=== PATIENT | female | born 1945 | race Caucasian/White ===

== ENCOUNTER 2020-09-25 10:35 | Emergency (ER) | payer MEDICARE, OTHER ==
[2020-09-25 10:53] VITALS: O2SAT 97
--- NOTE | 2020-09-25 10:58 | ERPHSYRPT ---
- History of Present Illness Time Seen by Provider: 09/25/20 10:57 Source: patient Exam Limitations: no limitations Patient Subjective Stated Complaint: Patient complans of L leg pain x2 weeks. L knee was drained two weeks ago with a cortisone shot in both knees. and she s tates it was very painful and has never been painful before. Knees were drained last 3 years ago with cortisone shot. Triage Nursing Assessment: Patient presents to the ER with L leg pain. Patient is ambulatory. Pulses normal. Large bruise on outter thigh- purple, Bruising on L knee- yellow green and patient states new bruising on [place]. Skin WNL. Physician History: This is an patient states that she can deal with the pain issues she is mostly concerned to know whether or not she has a left lower extremity deep venous thrombosis. Obese 75-year-old white female who presents with 2 weeks of left lower extremity pain swelling and bruising following an injection of cortisone. She routinely receives injections in her knees for relief of her arthritic pain. This last injection occurred approximately 2 weeks ago. Patient noticed that she had bruising which she does not typically have in her left lower extremity. She had more bruising this morning and noticed that her left lower extremity is more swollen than the right lower extremity and more swollen than usual. She denies shortness of breath. She denies chest pain. Method of Injury: other (Status post cortisone injection left knee) Occurred: other (2 weeks ago) Quality: aching (Mild) Severity of Pain-Max: mild Severity of Pain-Current: mild Lower Extremities Pain: knee: left, thigh: left, ankle: left Modifying Factors: Improves With: movement Associated Symptoms: none Allergies/Adverse Reactions: Penicillins Allergy (Mild, Verified 09/25/20 11:40) Home Medications: Amlodipine Besylate 5 mg [Norvasc 5 mg] 5 mg PO 09/25/20 [History] Levothyroxine Sodium [Levothyroxine] 50 mg PO 09/25/20 [History] Metformin HCl 500 mg [Glucophage 500 MG] 500 mg PO 09/25/20 [History] Metoprolol Succinate 25 mg Xl* [Toprol-Xl 25MG Tablets] 25 mg PO BID 09/25/20 [History] Simvastatin 40 mg PO 09/25/20 [History] Hx Tetanus, Diphtheria Vaccination/Date Given: Yes Hx Influenza Vaccination/Date Given: Yes Hx Pneumococcal Vaccination/Date Given: Yes Immunizations Up to Date: Yes Travel Risk - International Travel Have you traveled outside of the country in past 3 weeks: No - Coronavirus Screening Are you exhibiting any of the following symptoms?: No - Vaccine Status Have you recieved a Covid-19 vaccination: Yes Men'S Garment [employer]: [employer] - Vaccination Dates Date of 2cond Vaccination (if applicable): 07-20-20 - Review of Systems Constitutional: No Symptoms Eyes: No Symptoms Ears, Nose, & Throat: No Symptoms Respiratory: No Symptoms Cardiac: No Symptoms Abdominal/Gastrointestinal: No Symptoms Genitourinary Symptoms: No Symptoms Musculoskeletal: Other (Left lower extremity bruising and swelling) Skin: No Symptoms Neurological: No Symptoms Psychological: No Symptoms Endocrine: No Symptoms Hematologic/Lymphatic: No Symptoms Immunological/Allergic: No Symptoms All Other Systems: Reviewed and Negative - Past Medical History Pertinent Past Medical History: Yes Neurological History: No Pertinent History ENT History: Cataracts Cardiac History: No Pertinent History Respiratory History: No Pertinent History Endocrine Medical History: No Pertinent History Musculoskeletal History: Arthritis GI Medical History: No Pertinent History History: No Pertinent History Psycho-Social History: No Pertinent History Female Reproductive Disorders: No Pertinent History - Past Surgical History Past Surgical History: Yes Neuro Surgical History: No Pertinent History Cardiac: No Pertinent History Respiratory: No Pertinent History Gastrointestinal: No Pertinent History Genitourinary: No Pertinent History Musculoskeletal: No Pertinent History Female Surgical History: No Pertinent History Other Surgical History: R foot, neck, hysterectomy - Social History Smoking Status: Former smoker Exposure to second hand smoke: No Drug Use: none Patient Lives Alone: Yes - Female History Hx Now: No - Nursing Vital Signs Nursing Vital Signs: Initial Vital Signs Temperature 97 F 09/25/20 10:40 Pulse Rate 85 09/25/20 10:40 Blood Pressure 141/54 09/25/20 10:40 O2 Sat by Pulse Oximetry 97 09/25/20 10:40 Pain Scale Pain Intensity 0 - Physical Exam General Appearance: no apparent distress, alert, anxiety, obese Eyes, Ears, Nose, Throat Exam: normal ENT inspection, moist mucous membranes Neck Exam: normal inspection, non-tender, supple, full range of motion Cardiovascular/Respiratory Exam: chest non-tender, no respiratory distress Gastrointestinal/Abdominal Exam: non-tender Back Exam: normal inspection, normal range of motion, No CVA tenderness, No vertebral tenderness Hips Exam: bilateral: non-tender, normal inspection, normal range of motion, no evidence of injury Legs Exam: right leg: non-tender, normal inspection, left leg: ecchymosis, soft tissue tenderness, swelling, bilateral leg: normal range of motion, no evidence of injury Knees Exam: bilateral knee: non-tender, normal inspection, normal range of motion, no evidence of injury Ankle Exam: right ankle: normal inspection, left ankle: ecchymosis, soft tissue tenderness, swelling, bilateral ankle: non-tender, normal range of motion, no evidence of injury Foot Exam: bilateral foot: non-tender, normal inspection, normal range of motion, no evidence of injury Neuro/Tendon Exam: normal sensation, normal motor functions, normal tendon functions Mental Status Exam: alert, oriented x 3, cooperative Skin Exam: ecchymosis (Left lower extremity) SpO2 Interpretation: normal SpO2: 97 O2 Delivery: Room Air - Course Nursing assessment & vital signs reviewed: Yes Ordered Tests: Active Orders 24 hr Category Date Time Status VENOUS UNILAT/LIMITED EXTREMIT [US] Stat Exams 09/25/20 11:17 Ordered - Progress Progress: unchanged Progress Note: 09/25/20 11:51 Venous ultrasound the left lower extremity shows no evidence of any deep venous thrombosis. Counseled pt/family regarding: diagnosis, need for follow-up, rad results - Departure Departure Disposition: Home Clinical Impression: Left leg swelling, Superficial bruising of lower leg Condition: Stable Critical Care Time: No Referrals: ALBERTINA RODRÍGUEZ [Primary Care Provider] - Additional Instructions: Keep left lower extremity elevated above the level of your heart when not ambulating. Ice pack to bruised areas 2-3 times a day for the next 48 hours. Follow-up with your primary care physician for further management.
[2020-09-25 12:01] VITALS: BP 128/66; PULSE 64
--- NOTE | 2020-09-25 12:02 | XRAY ---
Indication: Pain and swelling. Two-dimensional sonogram and color Doppler imaging of the major venous vessels of the left leg was performed. Comparison: None No thrombus seen in the examined deep venous vessels of the left leg including greater saphenous vein. Veins demonstrate normal compressibility. Venous waveforms are normal with and without augmentation. Impression: Left leg negative for DVT.
== END 2020-09-25 12:01 | disposition home or self-care (01) ==
LOC: ED 10:35
DX: M79.89 Other specified soft tissue disorders (principal); S80.12XA Contusion of left lower leg, initial encounter; M79.662 Pain in left lower leg
CPT/HCPCS: 93971; 99283

== ENCOUNTER 2020-10-06 07:31 | Day surgery (SDC) | payer MEDICARE, OTHER ==
[~2020-10-06 07:31] MED LIST: Ak-Dilate OPHTHALMIC*** 1.065 ML, Cyclogyl 1% OPHTH SOL 5 ML 1.065 ML, GATIFLOXACIN 0.5... OP ONE; BETADINE 5% OPHTHALMIC 30 ML OP ONE; Lactated Ringers 1,000 ML IV SCH; NON-FORMULARY ITEM OP ONE; TETRACAINE 0.5% STERI-UNIT SOL OP ONE; cefUROXime sodium 0.005 GM in Sodium Chloride Flush 30 ML*** 0.5 ML IJ SCH
[2020-10-06] MEDS ORDERED: Lactated Ringers 1,000 ML IV ONE (07:58)
[2020-10-06] MEDS ORDERED: Zofran 4 MG/2 ML VIAL IV PRN (09:00)
[2020-10-06] MEDS ORDERED: ACETAZOLAMIDE 250 MG TABLET PO ONE (09:00)
[2020-10-06] MEDS ORDERED: DIPRIVAN 200 MG/20 ML IV ONE (09:24)
[2020-10-06] MEDS ORDERED: LIDOCAINE HCL 1% 50 MG/5 ML VL PF IJ ONE (10:00)
[2020-10-06] MEDS ORDERED: Epinephrine Preservative Free 1 MG/ML INTRAOP ONE (10:00)
[2020-10-06 10:27] VITALS: O2SAT 99
[2020-10-06 10:56] VITALS: BP 132/80; PULSE 57
== END 2020-10-06 11:05 | disposition home or self-care (01) ==
LOC: SDC 07:31
PROVIDERS: ATTEND Ophthalmology
DX: H25.812 Combined forms of age-related cataract, left eye (principal); E11.9 Type 2 diabetes mellitus without complications; I10 Essential (primary) hypertension; E07.9 Disorder of thyroid, unspecified; E78.00 Pure hypercholesterolemia, unspecified; Z79.899 Other long term (current) drug therapy
CPT/HCPCS: 82947; 99100; C1780; J0171; J2001; J2704; A9270-GY

== ENCOUNTER 2020-11-03 06:55 | Day surgery (SDC) | payer MEDICARE, OTHER ==
[2020-11-03] MEDS ORDERED: Lactated Ringers 1,000 ML IV SCH (07:00)
[2020-11-03] MEDS ORDERED: BETADINE 5% OPHTHALMIC 30 ML OP ONE (07:00)
[2020-11-03] MEDS ORDERED: TETRACAINE 0.5% STERI-UNIT SOL OP ONE ×2 (07:00)
[2020-11-03] MEDS ORDERED: NON-FORMULARY ITEM OP ONE (07:00)
[2020-11-03] MEDS ORDERED: Ak-Dilate OPHTHALMIC*** 1.065 ML, Cyclogyl 1% OPHTH SOL 5 ML 1.065 ML, GATIFLOXACIN 0.5... OP ONE ×4 (07:00)
[2020-11-03] MEDS ORDERED: cefUROXime sodium 0.005 GM in Sodium Chloride Flush 30 ML*** 0.5 ML IJ SCH (07:00)
[2020-11-03] MEDS ORDERED: Lactated Ringers 1,000 ML IV ONE (07:08)
[2020-11-03] MEDS ORDERED: Epinephrine Preservative Free 1 MG/ML INTRAOP ONE (09:00)
[2020-11-03] MEDS ORDERED: Zofran 4 MG/2 ML VIAL IV PRN (09:00)
[2020-11-03] MEDS ORDERED: ACETAZOLAMIDE 250 MG TABLET PO ONE (09:00)
[2020-11-03] MEDS ORDERED: LIDOCAINE HCL 1% 50 MG/5 ML VL PF IJ ONE (09:00)
[2020-11-03] MEDS ORDERED: DIPRIVAN 200 MG/20 ML IV ONE ×2 (09:29→10:12)
[2020-11-03 10:50] VITALS: O2SAT 98
[2020-11-03 11:15] VITALS: BP 148/80; PULSE 71
== END 2020-11-03 11:21 | disposition home or self-care (01) ==
LOC: SDC 06:55
PROVIDERS: ATTEND Ophthalmology
DX: H25.811 Combined forms of age-related cataract, right eye (principal); E11.9 Type 2 diabetes mellitus without complications; I10 Essential (primary) hypertension; E07.9 Disorder of thyroid, unspecified; Z79.899 Other long term (current) drug therapy
CPT/HCPCS: 82947; 99100; C1780; J0171; J2001; J2704; A9270-GY

== ENCOUNTER 2024-01-22 09:23 | Emergency (ER) | payer MEDICARE, OTHER ==
[2024-01-22 09:38] VITALS: TEMP 97.6
[2024-01-22 10:07] LABS: Absolute Neutrophil Ct (ANC) 5.18 x10^3/uL (1.56-6.13); BASOPHIL % 1.2 % (0.1-1.2); Eosinophil % 4.3 % (0.7-5.8); Eosinophil (Absolute #) 0.35 x10^3/uL (0.04-0.36); Hemoglobin 12.7 g/dL (11.2-15.7); IMMATURE GRAN # 0.03 x10^3u/L (0.001-0.031); IMMATURE GRAN % 0.4 % (0.001-0.429); Lymphocyte (Absolute #) 2.06 x10^3/uL (1.18-3.74); Lymphocytes % 25.2 % (19.3-51.7); Mean Cell Volume 93.4 fL (79.4-94.8); Mean Corpuscular Hemoglobin 31.2 pg (25.6-32.2); Mean Corpuscular Hgb Concent. 33.4 g/dL (32.2-35.5); Mean Platelet Volume 9.8 fL (9.4-12.3); Monocyte (Absolute #) 0.47 x10^3/uL (0.24-0.86); Monocytes % 5.7 % (4.7-12.5); Neutrophil % 63.2 % (34.0-71.1); Platelet Count 254 x10^3/uL (182-369); Red Blood Count 4.07 x10^6/uL (3.93-5.22); Red Cell Distribution Width 12.7 % (11.7-14.4); White Blood Count 8.2 x10^3/uL (3.98-10.04)
[2024-01-22 10:28] LABS: BILIRUBIN,TOTAL 0.5 mg/dL (0.2-1.3); Calcium 9.3 mg/dL (8.4-10.2); Creatinine 1 0.66 mg/dL (0.52-1.04); EST GLOMERULAR FILTRATION RATE 90.3 ML/MIN; Potassium 4.1 mmol/L (3.5-5.1); Total Protein 6.3 g/dL (6.3-8.2)
--- NOTE | 2024-01-22 10:35 | ERPHSYRPT ---
- History of Present Illness Time Seen by Provider: 01/22/24 09:32 Historian: patient Exam Limitations: no limitations Patient Subjective Stated Complaint: pt c/o of off and on pain under the right breast and it does radiate to her back Triage Nursing Assessment: Pt was brought to the ER by her daughter, hypertensive, rates pain as 5/10, denies N&V, last BM yesterday, pain under the right breast that radiates to her back, pain sometimes will go to her medial chest, pulses normal, skin n/w/d, no difficulty breathing Physician History: 78-year-old female with history of hypertension, hyperlipidemia, diabetes mellitus presented in the ER with complaint of right lower chest pain for the last 3 weeks. Patient reports most of the time pain is continuous, dull aching with some radiation to the back and sometimes in the substernal area. Denies any aggravating or relieving factors. Denies any right upper quadrant pain. No association with food intake. Denies associated nausea or vomiting. No difficulty breathing or palpitations. Denies any history of coronary artery disease although patient is scheduled for stress test soon. No cough fever or chills reported. Aspirin Treatment Today: no aspirin today Allergies/Adverse Reactions: Penicillins Allergy (Mild, Verified 01/22/24 09:38) Rash Home Medications: Amlodipine Besylate 5 mg [Norvasc 5 mg] 5 mg PO DAILY 09/25/20 [History] Levothyroxine Sodium 50 mcg PO DAILY 09/25/20 [History] Metformin HCl 500 mg [Glucophage 500 MG] 500 mg PO DAILY 09/25/20 [History ] Metoprolol Succinate 25 mg Xl* [Toprol-Xl 25MG Tablets] 25 mg PO BID 09/25/20 [History] Simvastatin 40 mg PO DAILY 09/25/20 [History] Vit C/E/Zn/Coppr/Lutein/Zeaxan [Preservision Areds 2 Softgel] 1 each PO BID 10/23/20 [History] Furosemide 20 mg [Lasix 20 mg] 20 mg PO DAILY 01/22/24 [History] Ibuprofen [Ibu] 800 mg PO UD 01/22/24 [History] Hx Tetanus, Diphtheria Vaccination/Date Given: Yes Hx Influenza Vaccination/Date Given: Yes Hx Pneumococcal Vaccination/Date Given: Yes Travel Risk - International Travel Have you traveled outside of the country in past 3 weeks: No - Emerging Infectious Disease Symptoms: Abdominal Pain - Review of Systems Constitutional: No Symptoms Eyes: No Symptoms Ears, Nose, & Throat: No Symptoms Respiratory: No Symptoms Cardiac: Chest Pain Abdominal/Gastrointestinal: No Symptoms Genitourinary Symptoms: No Symptoms Musculoskeletal: Arthralgias Skin: No Symptoms Neurological: No Symptoms Endocrine: No Symptoms Hematologic/Lymphatic: No Symptoms Immunological/Allergic: No Symptoms - Past Medical History Pertinent Past Medical History: Yes Neurological History: No Pertinent History ENT History: Cataracts Cardiac History: High Cholesterol, Hypertension Respiratory History: No Pertinent History Endocrine Medical History: Diabetes Type I Musculoskeletal History: Arthritis GI Medical History: No Pertinent History History: No Pertinent History Psycho-Social History: No Pertinent History Female Reproductive Disorders: No Pertinent History - Past Surgical History Past Surgical History: Yes Neuro Surgical History: No Pertinent History Cardiac: No Pertinent History Respiratory: No Pertinent History Gastrointestinal: No Pertinent History Genitourinary: No Pertinent History Musculoskeletal: No Pertinent History Female Surgical History: Hysterectomy Other Surgical History: R foot, neck, hysterectomy,cataract left eye - Social History Smoking Status: Former smoker Exposure to second hand smoke: No Drug Use: none Patient Lives Alone: Yes - Social Determinants of Health Will the patient participate in the screening: Yes Do you worry about a steady place to live?: No Do you have any problems with any of the following?: No known problems In the past 12 months,have you had to go without utilities?: No Transportation Issues: No Has anyone in your support network made you feel unsafe?: No Have you or anyone in your house had to go without enough: No - Nursing Vital Signs Nursing Vital Signs: Initial Vital Signs Temperature 97.6 F 01/22/24 09:27 Pulse Rate 85 01/22/24 09:27 Respiratory Rate 22 01/22/24 09:27 Blood Pressure 137/100 01/22/24 09:27 O2 Sat by Pulse Oximetry 96 01/22/24 09:27 Pain Scale Pain Intensity 5 - Physical Exam General Appearance: no apparent distress, alert Eye Exam: PERRL/EOMI Ears, Nose, Throat Exam: normal ENT inspection Neck Exam: normal inspection, non-tender, supple, full range of motion Respiratory Exam: normal breath sounds, chest tenderness (Minimal tenderness right lower to mid anterior chest wall. No flail segments or crepitus.), lungs clear Cardiovascular Exam: regular rate/rhythm, normal heart sounds Gastrointestinal/Abdomen Exam: soft, normal bowel sounds, No tenderness Back Exam: normal inspection Extremity Exam: normal inspection, normal range of motion, pelvis stable Neurologic Exam: alert, oriented x 3, cooperative, anatomy professor II-XII nml as tested Skin Exam: normal color SpO2 Interpretation: normal SpO2: 94 O2 Delivery: Room Air - Course EKG Interpreted by Me: RATE (82), Sinus Rhythm (With PSC), NORMAL AXIS, NORMAL INTERVALS, Other (Mild ST depression ) Ordered Tests: Active Orders 24 hr Category Date Time Status EKG-ER Only STAT Care 01/22/24 09:47 Completed IV Insertion STAT Care 01/22/24 09:47 Completed NPO (ED) STAT Care 01/22/24 09:47 Completed ABDOMEN AND PELVIS W/0 CONTRAS [CT] Stat Exams 01/22/24 11:10 Completed CHEST 1 VIEW (PORTABLE) Stat Exams 01/22/24 09:47 Completed CHEST WITHOUT CONTRAST [CT] Stat Exams 01/22/24 11:10 Completed CBC W DIFF Stat Lab 01/22/24 10:05 Completed CMP Stat Lab 01/22/24 10:05 Completed CULTURE,URINE Stat Lab 01/22/24 11:00 Received D-DIMER QUANTITATIVE Stat Lab 01/22/24 10:05 Completed LIPASE Stat Lab 01/22/24 10:05 Completed NT PRO BNPII Stat Lab 01/22/24 10:05 Completed TROPONIN Q4H Lab 01/22/24 10:05 Completed TROPONIN Q4H Lab 01/22/24 13:04 Completed UA W/RFX UR CULTURE Stat Lab 01/22/24 11:00 Completed Lab/Rad Data: Laboratory Result Diagrams 01/22/24 10:05 01/22/24 10:05 Laboratory Results 01/22/24 01/22/24 01/22/24 Range/Units 13:04 11:00 10:05 WBC (3.98-10.04) x10^3/uL RBC (3.93-5.22) x10^6/uL Hgb (11.2-15.7) g/dL Hct (34.1-44.9) % MCV (79.4-94.8) fL MCH (25.6-32.2) pg MCHC (32.2-35.5) g/dL RDW (11.7-14.4) % Plt Count (182-369) x10^3/uL MPV (9.4-12.3) fL Gran % (34.0-71.1) % Immature Gran % (Auto) (0.001-0.429) % Nucleat RBC Rel Count (0.00-0.2) % Eos # (Auto) (0.04-0.36) x10^3/uL Immature Gran # (Auto) (0.001-0.031) x10^3u/L Absolute Lymphs (auto) (1.18-3.74) x10^3/uL Absolute Monos (auto) (0.24-0.86) x10^3/uL Absolute Nucleated RBC (0.00-0.012) x10^3u/L Lymphocytes % (19.3-51.7) % Monocytes % (4.7-12.5) % Eosinophils % (0.7-5.8) % Basophils % (0.1-1.2) % Absolute Granulocytes (1.56-6.13) x10^3/uL Basophils # (0.01-0.08) x10^3/uL D-Dimer 0.42 (0.0-0.50) mg/L Sodium (135-145) mmol/L Potassium (3.5-5.1) mmol/L Chloride (98-107) mmol/L Carbon Dioxide (22-30) mmol/L Anion Gap (5-15) MEQ/L BUN (7-17) mg/dL Creatinine (0.52-1.04) mg/dL Estimated GFR ML/MIN Glucose (74-106) mg/dL Calcium (8.4-10.2) mg/dL Total Bilirubin (0.2-1.3) mg/dL AST (14-36) U/L ALT (0-35) U/L Alkaline Phosphatase (38-126) U/L Troponin I < 0.012 (0.000-0.033) ng/mL NT-Pro-B Natriuret Pep (<300) pg/mL Serum Total Protein (6.3-8.2) g/dL Albumin (3.5-5.0) g/dL Lipase (23-300) U/L Urine Color Yellow (Yellow) Urine Appearance Clear (Clear) Urine pH 6.0 (4.6-8.0) Ur Specific [place] 1.010 (1.005-1.030) Urine Protein Negative (Negative) Urine Glucose (UA) Negative (Negative) mg/dL Urine Ketones Negative (Negative) Urine Blood Negative (Negative) Urine Nitrite Negative (Negative) Urine Bilirubin Negative (Negative) Urine Urobilinogen 0.2 (0.2) mg/dL Ur Leukocyte Esterase Moderate A (Negative) U Hyaline Cast (Auto) 11-20 (0-2) /LPF Urine Microscopic RBC 0-2 (0-5) /HPF Urine Microscopic WBC 3-5 (0-5) /HPF Ur Epithelial Cells None Seen (None Seen) /HPF Urine Bacteria None Seen (None Seen) /HPF Urine Culture Reflexed YES (NO) 01/22/24 01/22/24 01/22/24 Range/Units 10:05 10:05 10:05 WBC 8.2 (3.98-10.04) x10^3/uL RBC 4.07 (3.93-5.22) x10^6/uL Hgb 12.7 (11.2-15.7) g/dL Hct 38.0 (34.1-44.9) % MCV 93.4 (79.4-94.8) fL MCH 31.2 (25.6-32.2) pg MCHC 33.4 (32.2-35.5) g/dL RDW 12.7 (11.7-14.4) % Plt Count 254 (182-369) x10^3/uL MPV 9.8 (9.4-12.3) fL Gran % 63.2 (34.0-71.1) % Immature Gran % (Auto) 0.4 (0.001-0.429) % Nucleat RBC Rel Count 0.0 (0.00-0.2) % Eos # (Auto) 0.35 (0.04-0.36) x10^3/uL Immature Gran # (Auto) 0.03 (0.001-0.031) x10^3u/L Absolute Lymphs (auto) 2.06 (1.18-3.74) x10^3/uL Absolute Monos (auto) 0.47 (0.24-0.86) x10^3/uL Absolute Nucleated RBC 0.00 (0.00-0.012) x10^3u/L Lymphocytes % 25.2 (19.3-51.7) % Monocytes % 5.7 (4.7-12.5) % Eosinophils % 4.3 (0.7-5.8) % Basophils % 1.2 (0.1-1.2) % Absolute Granulocytes 5.18 (1.56-6.13) x10^3/uL Basophils # 0.10 H (0.01-0.08) x10^3/uL D-Dimer (0.0-0.50) mg/L Sodium 139 (135-145) mmol/L Potassium 4.1 (3.5-5.1) mmol/L Chloride 106 (98-107) mmol/L Carbon Dioxide 23 (22-30) mmol/L Anion Gap 15.0 (5-15) MEQ/L BUN 15 (7-17) mg/dL Creatinine 0.66 (0.52-1.04) mg/dL Estimated GFR 90.3 ML/MIN Glucose 158 H (74-106) mg/dL Calcium 9.3 (8.4-10.2) mg/dL Total Bilirubin 0.50 (0.2-1.3) mg/dL AST 26 (14-36) U/L ALT 29 (0-35) U/L Alkaline Phosphatase 74 (38-126) U/L Troponin I < 0.012 (0.000-0.033) ng/mL NT-Pro-B Natriuret Pep 212 (<300) pg/mL Serum Total Protein 6.3 (6.3-8.2) g/dL Albumin 4.0 (3.5-5.0) g/dL Lipase 129 (23-300) U/L Urine Color (Yellow) Urine Appearance (Clear) Urine pH (4.6-8.0) Ur Specific [place] (1.005-1.030) Urine Protein (Negative) Urine Glucose (UA) (Negative) mg/dL Urine Ketones (Negative) Urine Blood (Negative) Urine Nitrite (Negative) Urine Bilirubin (Negative) Urine Urobilinogen (0.2) mg/dL Ur Leukocyte Esterase (Negative) U Hyaline Cast (Auto) (0-2) /LPF Urine Microscopic RBC (0-5) /HPF Urine Microscopic WBC (0-5) /HPF Ur Epithelial Cells (None Seen) /HPF Urine Bacteria (None Seen) /HPF Urine Culture Reflexed (NO) - Progress Progress: improved Air Movement: good Progress Note: 01/22/24 13:54 78-year-old is evaluated in the ER for right lower chest pain with some radi ation to the back. EKG is sinus rhythm with no ST elevations and negative troponins x 2. She is offered pain medication which she declined multiple times. She has minimal to no right upper quadrant tenderness. Workup showed normal white count, unremarkable chemistries. Has negative D-dimer. Chest x- ray negative for any acute cardiopulmonary findings reviewed by me, official report is pending. I have also obtained CT chest abdomen pelvis which showed hepatomegaly with small hepatic cyst and some lymph node around ryan hepatis and also some mediastinal nodes but no acute inflammatory process. Patient's pain is improved on reevaluation without any intervention. Her pain could be secondary to hepatomegaly causing pressure on the right thorax. Patient is advised to have outpatient follow-up with primary care and have ultrasound for further evaluation. She has appointment with cardiology for stress test soon which she is advised to keep. Discussed signs symptoms of worsening needing return to ER which she seems understanding. Stable for discharge. Blood Culture(s) Obtained: No Antibiotics given: No Counseled pt/family regarding: lab results, diagnosis, need for follow-up, rad results Medical Desision Making - Independent Historian Additional History obtained from: Child - Diagnostic Testing Diagnostic test were ordered, analyzed, and reviewed by me: Yes Radiological Interpretation: Interpreted by me, Reviewed by me, Teleradiologist Report - Departure Departure Disposition: Home Clinical Impression: Right-sided chest pain, Hepatomegaly Condition: Stable Critical Care Time: No Referrals: EMILI EGAN DO [Primary Care Provider] - Follow up with PCP 1 day Instructions: Severe Abdominal Pain, Adult (DC), Angina Additional Instructions: Continue Tylenol as needed. Follow-up with your primary care for reevaluation. Keep appointment with cardiology for stress test. Return to ER for worsening chest pain/abdominal pain or if having difficulty breathing etc.
[2024-01-22 11:15] LABS: Appearance Clear (Clear); Bacteria None Seen /HPF (None Seen); Bilirubin Negative (Negative); Blood Negative (Negative); Epithelial Cells None Seen /HPF (None Seen); Glucose, Urine Negative (Negative); Ketones Negative (Negative); Leukocyte Esterase Moderate (Negative); Nitrite Negative (Negative); Protein,Urine Dip Negative (Negative); RBC 0-2 /HPF (0-5); Urobilinogen 0.2 mg/dL (0.2)
[2024-01-22 11:23] LABS: ADD URINE CULTURE? YES (NO)
[2024-01-22 11:57] VITALS: BP 107/65
[2024-01-22 12:08] VITALS: PULSE 72
--- NOTE | 2024-01-22 12:54 | XRAY ---
CLINICAL HISTORY: right lower chest /RUQ pain COMPARISON: No prior studies available for comparison. TECHNIQUE: Non-contrast CT of the abdomen and pelvis was performed, with the following protocol: axial images, and reconstructed coronal and sagittal images. No intravenous contrast was administered. One of the following dose reduction techniques was utilized for this exam: Automated exposure control, adjustment of the mA and/or kV according to patient size, and use of iterative reconstruction. FINDINGS: Abdomen: Liver: Enlarged liver, measuring up to 19 cm at the largest craniocaudal span. A 1.9x1.6 cm lobulated cyst is seen in segment III of the liver. Another 1 cm cyst is seen in the caudate lobe. Few calcified tiny granulomas are seen. No other focal lesions or masses were identified. A 11 x 10 mm oval-shaped soft tissue nodule is seen adjacent to the ryan hepatis suggestive of lymph node. Gallbladder and Biliary System: The gallbladder is normal in size and shape. No wall thickening, pericholecystic fluid, or gallstones were identified. Pancreas: Pancreatic head, body, and tail are visualized and appear normal in size and density. Pancreatic body coarse calcifications are seen. No pancreatic masses were noted. Spleen: Multiple tiny calcified granulomas are seen. Normal in size, shape, and density. No other splenic lesions or masses were identified. Kidneys and Adrenal Glands: Both kidneys are normal in size, shape, and position. Cortical thickness is within normal limits. No renal calculi or hydronephrosis. Adrenal glands are unremarkable. Appendix: The appendix is normal in size without justin appendiceal fat stranding and without an appendicolith. No evidence of appendiceal abscess or perforation. Pelvis: Urinary Bladder: Normal in contour and wall thickness. No intraluminal lesions. Uterus: not visualized mostly due to previous hysterectomy. Ovaries: Not visualized. Vagina: Normal in contour and wall thickness. No pelvic cysts or masses. Peritoneal and Retroperitoneal Structures: No free fluid or abnormal fluid collections were identified within the abdomen or pelvis. No lymphadenopathy was noted. Bowel: Diverticular disease is seen. No signs of diverticulitis. The visualized bowel loops are normal in caliber and appearance. No evidence of bowel obstruction or wall thickening. Bones and Soft Tissues: Degenerative changes of the visualized spine with intervertebral disc calcifications. Diffuse osteopenia noted. Compression fracture of L5 vertebral body with no retropulsion or canal compression. Pelvic bones and soft tissues are unremarkable. No abnormal masses were identified. IMPRESSION: 1. Hepatomegaly (19 cm), and a 1.9x1.6 cm segment III and 1 cm segment I hepatic cysts. Further evaluation by liver US/MR is advised if clinically indicated. 2. Hepatic and splenic tinycalcified granulomas are seen. 3. A 11 x 10 mm oval-shaped soft tissue nodule is seen adjacent to the ryan hepatis suggestive of lymph node. 4. Diverticular disease is seen. No signs of diverticulitis. 5. The uterus is not visualized mostly due to previous hysterectomy. No pelvic cysts or masses. 6. Diffuse osteopenia noted. Compression fracture of L5 vertebral body of indeterminate age with no retropulsion or canal compression. Further evaluation with MR recommended. [facility] was called at [phone] at 11:48 AM TABLE COVER FOLDER, 01/22/2024 and Nurse Kalyani was informed regarding the presence of Important Medical Findings in the report. Electronically Signed by: Anthony Roman MD. (01/22/2024 12:51:04 EDT)
--- NOTE | 2024-01-22 12:54 | XRAY ---
CLINICAL HISTORY: right lower chest /RUQ pain COMPARISON: None. TECHNIQUE: Contiguous axial CT images of the chest were acquired without administration of intravenous contrast. Coronal and sagittal reconstructions were obtained. One of the following dose reduction techniques was utilized for this exam: Automated exposure control, adjustment of the mA and/or kV according to patient size, use of iterative reconstruction. CTDI: 9.47 mGy, DLP: 342.98 mGy-cm. FINDINGS: Lungs: One small calcified nodule is seen in the left lower lobe. The lung parenchyma is clear with no evidence of consolidation, collapse, or focal lesions. No pulmonary nodules or masses are identified. No evidence of interstitial lung disease or emphysema. No pleural effusion or pleural thickening. Mediastinum: The mediastinum is normal in size and contour. No mediastinal mass or abnormal lymphadenopathy. The heart size is within normal limits. Few calcified mediastinal nodes were noted, sequelae to previous infection. Hilar Structures: The hilar structures appear normal without enlargement or abnormality. Trachea and Main Bronchi: The trachea and main bronchi are patent without evidence of obstruction or abnormality. Chest Wall: The chest wall is unremarkable with no evidence of soft tissue or bony abnormalities. Upper Abdomen: Visualized portions of the liver, spleen, adrenal glands, and kidneys are unremarkable. Bones: Mild signs of dorsal spondylosis. Visualized osseous structures are normal, with no evidence of fracture or lytic/sclerotic lesions. IMPRESSION: 1. The above-mentioned findings are solitary tiny calcified granuloma in the left lower lung, few calcified lymph nodes in the mediastinum, and likely old granulomatous disease. 2. No acute cardiopulmonary disease process was noted. Electronically Signed by: Anthony Roman MD. (01/22/2024 12:50:47 EDT)
[2024-01-22 13:46] VITALS: RESP 18
[2024-01-22 13:57] VITALS: O2SAT 94
--- NOTE | 2024-01-22 19:26 | XRAY ---
Indication: Right chest pain. Comparison: None Portable chest hyperinflated and clear. Heart not enlarged. Bony thorax intact with osteopenia and mild degenerative changes. Impression: Nonacute hyperinflated chest.
== END 2024-01-22 14:01 | disposition home or self-care (01) ==
LOC: ED 09:23
DX: R07.9 Chest pain, unspecified (principal); R16.0 Hepatomegaly, not elsewhere classified; I10 Essential (primary) hypertension; E78.5 Hyperlipidemia, unspecified; E10.9 Type 1 diabetes mellitus without complications; Z79.84 Long term (current) use of oral hypoglycemic drugs; Z79.899 Other long term (current) drug therapy
CPT/HCPCS: 36000; 36415; 71045; 71250; 74176; 80053; 81001; 83690; 83880; 84484; 85025; 85379; 87086; 93005; 99284